=== PATIENT | female | born 1985 | race Hispanic/Latino ===

== ENCOUNTER 2021-07-01 04:10 | Emergency (ER) | payer OTHER ==
[2021-07-01 04:22] VITALS: BP 166/110
[2021-07-01] MEDS ORDERED: IBUPROFEN 800 MG TAB PO ONE (04:37)
--- NOTE | 2021-07-01 04:40 | Emergency Department Report ---
HPI - General Chief Complaint: Extremity Injury, Lower - HPI HPI: Room 22 The patient is a 35-year-old female present with a chief complaint of left toe pain. Patient states she works at [employer] and was unloading a truck when a heavy piece of metal fell off of the stack of boxes landing on her left foot. Patient states she did have a shoe on at the time. Patient now complains of throbbing pain of the left great toe. Patient gives her pain a score of 10/10 ED Past Medical Hx - Past Medical History Previous Medical History?: No - Surgical History Past Surgical History?: No - Family History Family history: no significant - Social History Smoking Status: Unknown if ever smoked Substance Use Type: None - Medications Home Medications: Home Medications Medication Instructions Recorded Confirmed Last Taken Type Ibuprofen [Motrin 800 MG tab] 800 mg PO Q8HR PRN #20 tablet 07/01/21 Unknown Rx cephALEXin [Keflex] 500 mg PO Q8HR #14 cap 07/01/21 Unknown Rx ED Review of Systems ROS: Stated complaint: POSS BROKEN TOE Other details as noted in HPI Musculoskeletal: arthralgia Physical Exam - Physical Exam Vital Signs: Vital Signs 07/01/21 04:17 Temperature 98.3 F Pulse Rate 83 Respiratory 17 Rate Blood Pressure 166/110 O2 Sat by Pulse 99 Oximetry Physical Exam: GENERAL: The patient is well-developed well-nourished female lying on stretcher not appearing to be in acute distress. [] HEENT: Normocephalic. Atraumatic. Extraocular motions are intact. Patient has moist mucous membranes. NECK: Supple. Trachea midline CHEST/LUNGS: There is no respiratory distress noted. HEART/CARDIOVASCULAR: Regular. There is no tachycardia. 2+ left DP SKIN: Left great toe subungual hematoma NEURO: The patient is awake, alert, and oriented. The patient is cooperative. The patient has no focal neurologic deficits. The patient has normal speech. GCS 15 MUSCULOSKELETAL: There is tenderness of the left great toe. No laceration seen. ED Course Vital Signs 07/01/21 04:17 Temperature 98.3 F Pulse Rate 83 Respiratory 17 Rate Blood Pressure 166/110 O2 Sat by Pulse 99 Oximetry - Nerve Block Consent Obtained: verbal consent Local Anesthetic Used: Marcaine 0.5% Amount of anesthesia used: 5 (Bupivacaine mixed with lidocaine 1% in a 4:1 mixture ratio) Side: left Nerve Blocks: digital (Left great toe) Procedure Successful: Yes Complications: none Patient Tolerated Procedure: well ED Medical Decision Making - Radiology Data Radiology results: image reviewed (Left great toe extremity) interpreted by me: Left great toe [id number] fracture through the middle of the first distal phalanx - Differential Diagnosis Toe fracture, toe contusion, subungual hematoma Critical care attestation.: If time is entered above; I have spent that time in minutes in the direct care of this critically ill patient, excluding procedure time. ED Disposition Clinical Impression: Fracture of left great toe Disposition: HOME / SELF CARE / HOMELESS Is pt being admited?: No Does the pt Need Aspirin: No Condition: Stable Instructions: Toe Fracture, [id number] Additional Instructions: Return to the emergency department should you develop worsening symptoms, inability to tolerate food or liquids, high fever or any other concerns Prescriptions: cephALEXin [Keflex] 500 mg PO Q8HR #14 cap Ibuprofen [Motrin 800 MG tab] 800 mg PO Q8HR PRN #20 tablet PRN Reason: Pain, Moderate (4-6) Referrals: AIDA DUKE MD [Staff Physician] - 3-5 Days (Dr. Duke is orthopedic surgeon. Please follow-up with him for further evaluation) Time of Disposition: 05:18
[2021-07-01] MEDS ORDERED: LIDOCAINE (1%) 10 MG/1 ML VIAL 20 ML MDV INFILTRATI ONE (04:51)
[2021-07-01] MEDS ORDERED: BUPIVACAINE/PF (0.5%) 5 MG/1 ML 10 ML VIAL INFILTRATI ONE (04:51)
--- NOTE | 2021-07-01 05:03 | XRay Report ---
Left great toe 3 views INDICATION: Fall FINDINGS: There is a displaced fractures of the distal tuft of the left toe. Diffuse soft tissue clau a Signer Name: Colby Schulz MD Signed: 07/01/2021 4:58 AM [id number]
[2021-07-01] MEDS ORDERED: HYDROGEN PEROXIDE 118 ML SOLUTION TP ONE (05:16)
== END 2021-07-01 07:28 | disposition home or self-care (01) ==
LOC: ED 04:10
DX: S92.402A Displaced unspecified fracture of left great toe, initial encounter for closed fracture (principal); X58.XXXA Exposure to other specified factors, initial encounter; Y93.89 Activity, other specified; Y92.89 Other specified places as the place of occurrence of the external cause; Y99.8 Other external cause status
CPT/HCPCS: 64450; 73660; 99283; J3490